=== PATIENT | male | born 1960 | race Caucasian/White ===

== ENCOUNTER 2021-03-28 05:29 | Inpatient (IN) | payer MEDICAID, OTHER ==
[~2021-03-28] VITALS: Ht 177.8 cm; Wt 67.9 kg
[2021-03-28] MEDS ORDERED: HYDROmorphone 2 MG/ML, 1ML ONE (05:57)
[2021-03-28] MEDS ORDERED: ONDANSETRON 2MG/ML, 2ML ONE (05:58)
[2021-03-28] MEDS ORDERED: HYDROmorphone 1 MG/ML, 1ML INJ IV ONE (06:00)
[2021-03-28] MEDS ORDERED: SODIUM CHLORIDE FLUSH 10ML SYR IVF ONE (06:00)
[2021-03-28] MEDS ORDERED: SODIUM CHLORIDE 0.9% 1,000 ML IV ONE ×2 (06:00→07:30)
[2021-03-28] MEDS ORDERED: ONDANSETRON 2MG/ML, 2ML IVPush ONE (06:00)
[2021-03-28 06:26] LABS: BASOPHILS % (AUTO) 0 % (0-1); EOSINOPHILS % (AUTO) 0 % (1-7); LYMPHOCYTES % (AUTO) 4 % (22-44); MEAN CORPUSCULAR HEMOGLOBIN 28.7 pg (27.5-34.5); MEAN CORPUSCULAR HGB CONC 32.9 g/dL (33.2-36.2); MEAN PLATELET VOLUME 9.2 fL (7.4-10.4); MONOCYTES % (AUTO) 7 % (2-9); NEUTROPHILS % (AUTO) 89 % (42-75); PLATELET COUNT 149 x10^3/uL (130-400); RED BLOOD COUNT 5.23 x10^6/uL (4.38-5.82); RED CELL DISTRIBUTION WIDTH 15.9 % (9.4-14.8)
[2021-03-28 06:34] LABS: ALBUMIN 3.7 g/dL (3.4-5.0); ANION GAP 8 mmol/L (5-15); CHLORIDE 102 mmol/L (98-107)
[2021-03-28 06:38] LABS: CREATININE 0.89 mg/dL (0.7-1.3)
[2021-03-28 06:39] LABS: ALANINE AMINOTRANSFERASE 110 U/L (12-78); ALKALINE PHOSPHATASE 395 U/L (45-117); TOTAL PROTEIN 8.3 g/dL (6.4-8.2)
--- NOTE | 2021-03-28 07:01 | NUR ---
CARE TRANSFERED. REPORT GIVEN TO FRANCO OVALLE
[2021-03-28] MEDS ORDERED: SODIUM CHLORIDE FLUSH 10ML SYR IVF PRN (07:30)
--- NOTE | 2021-03-28 07:59 | NUR ---
PT TO MRI WITH TECH TRANSPORT
--- NOTE | 2021-03-28 07:59 | NUR ---
LATE ENTRY FOR 0740, DR MARMOLEJO AT BEDSIDE. POC DISCUSSED AND QUESTIONS ANSWERED.
[2021-03-28] MEDS ORDERED: ONDANSETRON 2MG/ML, 2ML IVPush PRN ×2 (08:00→10:30)
[2021-03-28] MEDS ORDERED: LACTATED RINGERS 1,000 ML IV SCH (08:00)
[2021-03-28] MEDS ORDERED: ACETAMINOPHEN 325 MG TABLET PO PRN ×2 (08:00→10:30)
[2021-03-28] MEDS ORDERED: INSULIN LISPRO 100 UNITS/ML, PEN SQ-INSULIN SCH (08:00)
[2021-03-28] MEDS ORDERED: OXYcodone IR 5MG TABLET PO PRN (08:00)
[2021-03-28] MEDS: CEFTRIAXONE 2 GM in DEXTROSE 5% 50 ML IVPB SCH (08:49)
--- NOTE | 2021-03-28 08:54 | NUR ---
PT RTD FROM MRI. IVF STARTED AND INFUSING PER ORDER, ROCEPHIN INFUSING PER ORDER. COVID PCR SAMPLE COLLECTED AND DELIVERED TO LAB.
[2021-03-28] MEDS ORDERED: PANTOPRAZOLE 40 MG IV IVPush SCH (09:00)
[2021-03-28] MEDS ORDERED: INSULIN LISPRO SINGLE DOSE, ER SQ-INSULIN ONE (09:06)
[2021-03-28] MEDS: LACTATED RINGERS 1,000 ML IV SCH (09:11)
[2021-03-28 09:34] VITALS: BP 165/94
[2021-03-28] MEDS ORDERED: CHLORHEXIDINE 15 ML UDC ONE (09:35)
[2021-03-28] MEDS ORDERED: FENTANYL PF 100 MCG/2ML ONE (09:37)
[2021-03-28] MEDS ORDERED: OMNIPAQUE 350 MG/ML, 50 ML BOTTLE ONE (09:41)
[2021-03-28] MEDS ORDERED: DEXAMETHASONE 4 MG/ML, 5ML ONE (09:55)
[2021-03-28] MEDS ORDERED: CHLORHEXIDINE 15 ML UDC PO ONE (10:00)
[2021-03-28] MEDS ORDERED: PROPOFOL 10 MG/ML, 20ML ONE (10:03)
[2021-03-28] MEDS ORDERED: PROMETHAZINE 25 MG/ML, 1ML IVPush PRN (10:30)
[2021-03-28] MEDS ORDERED: PROMETHAZINE 12.5 MG SUPP PR PRN (10:30)
[2021-03-28] MEDS ORDERED: OXYcodone 5 MG/5 ML ORAL.SOL UDC PO PRN (10:30)
[2021-03-28] MEDS ORDERED: DIAZEPAM 5 MG/ML, 2ML IVPush PRN (10:30)
[2021-03-28] MEDS ORDERED: MIDAZOLAM 1 MG/ML, 2ML IV PRN (10:30)
[2021-03-28] MEDS ORDERED: MEPERIDINE/PF 25MG/0.5ML IVPush PRN (10:30)
[2021-03-28] MEDS ORDERED: HYDROmorphone 1 MG/ML, 1ML INJ IVPush PRN (10:30)
[2021-03-28] MEDS ORDERED: EPHEDRINE 50 MG/ML, 1ML IVPush PRN (10:30)
[2021-03-28] MEDS ORDERED: LORazepam 2 MG/ML, 1ML IVPush PRN (10:30)
[2021-03-28] MEDS ORDERED: DIPHENHYDRAMINE 50 MG/ML, 1ML IVPush PRN ×2 (10:30)
[2021-03-28] MEDS ORDERED: FENTANYL PF 100 MCG/2ML IV PRN (10:30)
[2021-03-28] MEDS ORDERED: hydrALAzine 20 MG/ML, 1ML IV PRN (10:30)
[2021-03-28] MEDS ORDERED: ALBUTEROL SULFATE 2.5 MG/3 ML NPPB PRN (10:30)
[2021-03-28] MEDS ORDERED: LABETALOL 5MG/ML, 20ML IV PRN (10:30)
[2021-03-28] MEDS: METRONIDAZOLE PMX 500MG/100ML 100 ML IV SCH ×2 (11:28→19:52)
[2021-03-28] MEDS: SUCRALFATE 1 GM/10 ML UDC PO SCH ×3 (11:29→20:22)
[2021-03-28] MEDS: INSULIN LISPRO 100 UNITS/ML, PEN SQ-INSULIN SCH ×3 (11:30→20:23)
[2021-03-28] MEDS ORDERED: OMEP-110 PO (12:04)
[2021-03-28] MEDS ORDERED: DILT120C83 PO (12:04)
[2021-03-28] MEDS ORDERED: METF500T27 PO (12:04)
[2021-03-28] MEDS ORDERED: MIRT-14 PO (12:04)
[2021-03-28] MEDS ORDERED: ASPI-1026 PO (12:04)
[2021-03-28] MEDS ORDERED: INSU100V8 SQ (12:04)
[2021-03-28] MEDS ORDERED: GABA300C PO ×2 (12:04)
[2021-03-28] MEDS ORDERED: ATOR20TA37 PO (12:04)
[2021-03-28] MEDS ORDERED: INSU100I11 SQ (12:04)
[2021-03-28] MEDS ORDERED: EPINEPHRINE SYRINGE 0.1 MG/ML, 10ML ONE (12:12)
[2021-03-28 13:52] VITALS: BP 109/75
[2021-03-28 18:21] VITALS: BP 98/66
[2021-03-28] MEDS ORDERED: TRAZODONE 50MG TABLET PO PRN (21:00)
[2021-03-28] MEDS ORDERED: MELATONIN 5 MG TABLET PO PRN (21:00)
[2021-03-29 00:09] VITALS: BP 124/84
[2021-03-29] MEDS: LACTATED RINGERS 1,000 ML IV SCH ×2 (03:25→16:00)
[2021-03-29] MEDS: METRONIDAZOLE PMX 500MG/100ML 100 ML IV SCH ×3 (03:25→18:10)
[2021-03-29 06:41] LABS: BASOPHILS % (AUTO) 0 % (0-1); EOSINOPHILS % (AUTO) 1 % (1-7); LYMPHOCYTES % (AUTO) 11 % (22-44); MEAN CORPUSCULAR HEMOGLOBIN 29.2 pg (27.5-34.5); MEAN CORPUSCULAR HGB CONC 33.3 g/dL (33.2-36.2); MEAN PLATELET VOLUME 9.3 fL (7.4-10.4); MONOCYTES % (AUTO) 7 % (2-9); NEUTROPHILS % (AUTO) 80 % (42-75); PLATELET COUNT 149 x10^3/uL (130-400); RED BLOOD COUNT 4.27 x10^6/uL (4.38-5.82)
[2021-03-29 06:47] LABS: ALBUMIN 2.7 g/dL (3.4-5.0); CALCIUM 8.3 mg/dL (8.5-10.1)
[2021-03-29 06:51] LABS: ALANINE AMINOTRANSFERASE 121 U/L (12-78); ALKALINE PHOSPHATASE 318 U/L (45-117); BILIRUBIN,TOTAL 4.6 mg/dL (0.2-1.0); CREATININE 0.94 mg/dL (0.7-1.3); TOTAL PROTEIN 6.3 g/dL (6.4-8.2)
[2021-03-29 06:54] LABS: ANION GAP 5 mmol/L (5-15); CHLORIDE 106 mmol/L (98-107)
[2021-03-29 07:00] VITALS: BP 122/78
[2021-03-29] MEDS: INSULIN LISPRO 100 UNITS/ML, PEN SQ-INSULIN SCH ×4 (07:00→21:04)
[2021-03-29] MEDS: SUCRALFATE 1 GM/10 ML UDC PO SCH ×4 (07:18→21:04)
[2021-03-29] MEDS: OMEPRAZOLE 20 MG CAPSULE.DR PO SCH (07:18)
[2021-03-29] MEDS ORDERED: CHLORHEXIDINE 15 ML UDC ONE (07:52)
[2021-03-29] MEDS ORDERED: FENTANYL PF 100 MCG/2ML ONE ×4 (08:25→11:13)
[2021-03-29] MEDS ORDERED: MIDAZOLAM 1 MG/ML, 2ML ONE (08:25)
[2021-03-29] MEDS ORDERED: EPINEPHRINE 1 MG/ML, 1ML ONE (08:28)
[2021-03-29] MEDS ORDERED: CHLORHEXIDINE 15 ML UDC PO ONE (08:30)
[2021-03-29] MEDS ORDERED: BUPIVACAINE/PF 0.5% ONE (08:34)
[2021-03-29] MEDS ORDERED: CEFOTETAN 2 GM ONE (08:51)
[2021-03-29] MEDS ORDERED: PHENYLEPHRINE 10 MG/ML ONE (08:51)
[2021-03-29] MEDS ORDERED: BUPIVACAINE/PF 0.5% INFIL ONE (09:03)
[2021-03-29 09:12] LABS: OCCULT BLOOD NEGATIVE (NEGATIVE)
[2021-03-29] MEDS ORDERED: PROMETHAZINE 25 MG/ML, 1ML IVPush PRN (10:00)
[2021-03-29] MEDS ORDERED: LABETALOL 5MG/ML, 20ML IV PRN (10:00)
[2021-03-29] MEDS ORDERED: hydrALAzine 20 MG/ML, 1ML IV PRN (10:00)
[2021-03-29] MEDS ORDERED: OXYcodone 5 MG/5 ML ORAL.SOL UDC PO PRN (10:00)
[2021-03-29] MEDS ORDERED: METHOCARBAMOL 1,000 MG in DEXTROSE 5% 100 ML IV PRN (10:00)
[2021-03-29] MEDS ORDERED: ACETAMINOPHEN 325 MG TABLET PO PRN (10:00)
[2021-03-29] MEDS ORDERED: ONDANSETRON 2MG/ML, 2ML IVPush PRN (10:00)
[2021-03-29] MEDS ORDERED: HYDROmorphone 1 MG/ML, 1ML INJ IVPush PRN (10:00)
[2021-03-29] MEDS ORDERED: PROMETHAZINE 25 MG SUPP PR PRN (10:00)
[2021-03-29] MEDS ORDERED: MEPERIDINE/PF 25MG/0.5ML IVPush PRN (10:00)
[2021-03-29] MEDS ORDERED: LORazepam 2 MG/ML, 1ML IVPush PRN (10:00)
[2021-03-29] MEDS ORDERED: METOPROLOL 1 MG/ML, 5ML IV PRN (10:00)
[2021-03-29] MEDS ORDERED: ROCURONIUM 10MG/ML,5ML ONE (10:04)
[2021-03-29] MEDS ORDERED: PROPOFOL 10 MG/ML, 20ML ONE (10:04)
[2021-03-29] MEDS ORDERED: CEFAZOLIN 1,000 MG ONE (10:04)
[2021-03-29] MEDS ORDERED: NEOSTIGMINE 1 MG/ML, 10ML ONE (10:04)
[2021-03-29] MEDS ORDERED: SUCCINYLCHOLINE 20 MG/ML, 10ML ONE (10:04)
[2021-03-29] MEDS ORDERED: ONDANSETRON 2MG/ML, 2ML ONE (10:04)
[2021-03-29] MEDS ORDERED: GLYCOPYRROLATE 0.2MG/1ML, 5ML ONE (10:04)
[2021-03-29] MEDS ORDERED: DEXAMETHASONE 4 MG/ML, 1ML ONE (10:04)
[2021-03-29] MEDS ORDERED: TRANEXAMIC ACID 100 MG/ML, 10ML ONE (10:11)
[2021-03-29] MEDS ORDERED: SUGAMMADEX 200 MG/2 ML IVPush ONE (10:21)
[2021-03-29] MEDS: FENTANYL PF 100 MCG/2ML IV PRN ×4 (10:48→11:28)
[2021-03-29] MEDS ORDERED: OXYcodone 5 MG/5 ML ORAL.SOL UDC ONE (11:20)
[2021-03-29] MEDS ORDERED: HYDROmorphone 2 MG/ML, 1ML ONE (11:44)
[2021-03-29 12:05] VITALS: BP 140/85
[2021-03-29] MEDS: CEFTRIAXONE 2 GM in DEXTROSE 5% 50 ML IVPB SCH (14:37)
[2021-03-29] MEDS: morphine SULFATE 10 MG/ML, 1ML IV PRN ×2 (15:59→17:07)
[2021-03-29] MEDS ORDERED: MORPHINE SULFATE 4 MG/ML, 1ML IV PRN (16:00)
[2021-03-29] MEDS ORDERED: ONDANSETRON 4 MG TABLET PO PRN (16:00)
[2021-03-29 19:03] VITALS: BP 122/77
[2021-03-29] MEDS: OXYcodone/APAP 5/325MG TABLET PO PRN ×2 (19:22→23:56)
[2021-03-29] MEDS: CEFOTETAN PMX 1GM/50ML 50 ML IVPB SCH (21:05)
[2021-03-30] MEDS: METRONIDAZOLE PMX 500MG/100ML 100 ML IV SCH ×2 (02:05→10:14)
[2021-03-30 02:11] VITALS: BP 98/61
[2021-03-30 05:08] LABS: BASOPHILS % (AUTO) 1 % (0-1); EOSINOPHILS % (AUTO) 2 % (1-7); LYMPHOCYTES % (AUTO) 10 % (22-44); MEAN CORPUSCULAR HEMOGLOBIN 29.5 pg (27.5-34.5); MEAN CORPUSCULAR HGB CONC 33.3 g/dL (33.2-36.2); MEAN PLATELET VOLUME 9.5 fL (7.4-10.4); MONOCYTES % (AUTO) 7 % (2-9); NEUTROPHILS % (AUTO) 80 % (42-75); PLATELET COUNT 119 x10^3/uL (130-400); RED BLOOD COUNT 3.85 x10^6/uL (4.38-5.82); RED CELL DISTRIBUTION WIDTH 16.4 % (9.4-14.8)
[2021-03-30 05:17] LABS: CHLORIDE 104 mmol/L (98-107)
[2021-03-30 05:25] LABS: ALANINE AMINOTRANSFERASE 120 U/L (12-78); ALBUMIN 2.2 g/dL (3.4-5.0); ALKALINE PHOSPHATASE 263 U/L (45-117); ANION GAP 4 mmol/L (5-15); BILIRUBIN,TOTAL 3.8 mg/dL (0.2-1.0); CALCIUM 8.3 mg/dL (8.5-10.1); CREATININE 0.91 mg/dL (0.7-1.3); TOTAL PROTEIN 5.9 g/dL (6.4-8.2)
[2021-03-30] MEDS: OXYcodone/APAP 5/325MG TABLET PO PRN ×4 (05:52→21:01)
[2021-03-30] MEDS: SUCRALFATE 1 GM/10 ML UDC PO SCH ×4 (07:47→21:02)
[2021-03-30] MEDS: LACTATED RINGERS 1,000 ML IV SCH (07:47)
[2021-03-30] MEDS: INSULIN LISPRO 100 UNITS/ML, PEN SQ-INSULIN SCH ×4 (07:48→21:19)
[2021-03-30] MEDS: OMEPRAZOLE 20 MG CAPSULE.DR PO SCH (07:48)
[2021-03-30] MEDS ORDERED: CEFTRIAXONE 2 GM in DEXTROSE 5% 50 ML IVPB SCH (08:00)
[2021-03-30] MEDS: CEFOTETAN PMX 1GM/50ML 50 ML IVPB SCH ×2 (09:17→21:02)
[2021-03-30 13:56] VITALS: BP 110/70
[2021-03-30] MEDS ORDERED: POLYETHYLENE GLYCOL 17 GM PACKET NG PRN (15:00)
[2021-03-30 20:02] VITALS: BP 124/75
[2021-03-30] MEDS: ATORVASTATIN 20 MG TABLET PO SCH (21:01)
[2021-03-30] MEDS: MIRTAZAPINE 15 MG TABLET PO SCH (21:02)
[2021-03-30] MEDS: INSULIN GLARGINE 100 UNITS/ML, PEN SQ-INSULIN SCH (21:18)
[2021-03-31 00:28] VITALS: BP 114/70
[2021-03-31] MEDS: OXYcodone/APAP 5/325MG TABLET PO PRN ×4 (03:11→20:13)
[2021-03-31 05:14] LABS: BASOPHILS % (AUTO) 1 % (0-1); EOSINOPHILS % (AUTO) 4 % (1-7); LYMPHOCYTES % (AUTO) 11 % (22-44); MEAN CORPUSCULAR HEMOGLOBIN 29.9 pg (27.5-34.5); MEAN CORPUSCULAR HGB CONC 33.7 g/dL (33.2-36.2); MEAN PLATELET VOLUME 9.4 fL (7.4-10.4); MONOCYTES % (AUTO) 9 % (2-9); NEUTROPHILS % (AUTO) 76 % (42-75); PLATELET COUNT 143 x10^3/uL (130-400); RED BLOOD COUNT 3.76 x10^6/uL (4.38-5.82)
[2021-03-31 05:24] LABS: CHLORIDE 102 mmol/L (98-107)
[2021-03-31 05:29] LABS: ALANINE AMINOTRANSFERASE 73 U/L (12-78); ALBUMIN 2.1 g/dL (3.4-5.0); ALKALINE PHOSPHATASE 238 U/L (45-117); ANION GAP 4 mmol/L (5-15); BILIRUBIN,TOTAL 2.1 mg/dL (0.2-1.0); CALCIUM 8.6 mg/dL (8.5-10.1); CREATININE 0.93 mg/dL (0.7-1.3); TOTAL PROTEIN 5.9 g/dL (6.4-8.2)
[2021-03-31 06:59] VITALS: BP 120/72
[2021-03-31] MEDS: INSULIN LISPRO 100 UNITS/ML, PEN SQ-INSULIN SCH ×4 (07:18→20:27)
[2021-03-31] MEDS: SUCRALFATE 1 GM/10 ML UDC PO SCH (07:19)
[2021-03-31] MEDS: OMEPRAZOLE 20 MG CAPSULE.DR PO SCH (07:21)
[2021-03-31] MEDS: CEFOTETAN PMX 1GM/50ML 50 ML IVPB SCH (09:06)
[2021-03-31] MEDS: SENNA/DOCUSATE TABLET PO SCH (09:06)
[2021-03-31] MEDS: DILTIAZEM 120 MG CAP.ER.24H PO SCH (09:07)
[2021-03-31] MEDS ORDERED: OMEP-110 PO (12:08)
[2021-03-31] MEDS ORDERED: SENN-211 PO (12:08)
[2021-03-31] MEDS ORDERED: MIRT-14 PO (12:08)
[2021-03-31] MEDS ORDERED: INSU100V8 SQ (12:08)
[2021-03-31] MEDS ORDERED: OXYC1TAB14 PO (12:08)
[2021-03-31 12:40] VITALS: BP 119/78
[2021-03-31 19:03] VITALS: BP 114/71
[2021-03-31] MEDS: ATORVASTATIN 20 MG TABLET PO SCH (20:13)
[2021-03-31] MEDS: MIRTAZAPINE 15 MG TABLET PO SCH (20:13)
[2021-03-31] MEDS: INSULIN GLARGINE 100 UNITS/ML, PEN SQ-INSULIN SCH (20:26)
[2021-04-01 01:49] VITALS: BP 120/78
[2021-04-01] MEDS: INSULIN LISPRO 100 UNITS/ML, PEN SQ-INSULIN SCH ×3 (07:00→16:00)
[2021-04-01] MEDS: SENNA/DOCUSATE TABLET PO SCH (07:49)
[2021-04-01] MEDS: OMEPRAZOLE 20 MG CAPSULE.DR PO SCH (07:49)
[2021-04-01] MEDS: DILTIAZEM 120 MG CAP.ER.24H PO SCH (07:49)
[2021-04-01] MEDS: OXYcodone/APAP 5/325MG TABLET PO PRN (08:10)
[2021-04-01] MEDS ORDERED: OMEPRAZOLE 20 MG CAPSULE.DR PO SCH (21:00)
== END 2021-04-01 16:45 | disposition home or self-care (01) | DRG 263 ==
LOC: ED 06:01 → EDIP 07:30 → 3N 09:30
PROVIDERS: ADMIT Internal Medicine; ATTEND Family Medicine
PROC: 0W3P8ZZ Control Bleeding in Gastrointestinal Tract, Via Natural or Artificial Opening Endoscopic (ICD-10-PCS; 2021-03-28)
PROC: 0DB58ZX Excision of Esophagus, Via Natural or Artificial Opening Endoscopic, Diagnostic (ICD-10-PCS; 2021-03-28)
PROC: 0DB68ZX Excision of Stomach, Via Natural or Artificial Opening Endoscopic, Diagnostic (ICD-10-PCS; 2021-03-28)
PROC: BF101ZZ Fluoroscopy of Bile Ducts using Low Osmolar Contrast (ICD-10-PCS; 2021-03-28)
PROC: 0FC78ZZ Extirpation of Matter from Common Hepatic Duct, Via Natural or Artificial Opening Endoscopic (ICD-10-PCS; principal; 2021-03-28 09:30)
PROC: 0FT40ZZ Resection of Gallbladder, Open Approach (ICD-10-PCS; 2021-03-29)
PROC: 0FJ44ZZ Inspection of Gallbladder, Percutaneous Endoscopic Approach (ICD-10-PCS; 2021-03-29)
DX: K80.43 Calculus of bile duct with acute cholecystitis with obstruction (principal); E43 Unspecified severe protein-calorie malnutrition; K22.6 Gastro-esophageal laceration-hemorrhage syndrome; C48.1 Malignant neoplasm of specified parts of peritoneum; D68.69 Other thrombophilia; K70.10 Alcoholic hepatitis without ascites; Z68.22 Body mass index [BMI] 22.0-22.9, adult; F32.9 Major depressive disorder, single episode, unspecified; I48.0 Paroxysmal atrial fibrillation; K82.8 Other specified diseases of gallbladder; R31.9 Hematuria, unspecified; K22.70 Barrett's esophagus without dysplasia; K66.0 Peritoneal adhesions (postprocedural) (postinfection); K44.9 Diaphragmatic hernia without obstruction or gangrene; Z20.822 Contact with and (suspected) exposure to COVID-19; Z66 Do not resuscitate; E11.9 Type 2 diabetes mellitus without complications; E78.5 Hyperlipidemia, unspecified; F10.10 Alcohol abuse, uncomplicated; I10 Essential (primary) hypertension; J44.9 Chronic obstructive pulmonary disease, unspecified; Z51.5 Encounter for palliative care; Z53.31 Laparoscopic surgical procedure converted to open procedure; Z79.4 Long term (current) use of insulin; Z82.49 Family history of ischemic heart disease and other diseases of the circulatory system; Z83.3 Family history of diabetes mellitus; Z87.891 Personal history of nicotine dependence
CPT/HCPCS: 36415; 71045; 74181; 74328; 80053; 82272; 82962; 83605; 83690; 83735; 84100; 85025; 86850; 86870; 86900; 86922; 86923; 87635; 88304; 88305; 93005; 96374; 96375; G0378; J0171; J0690; J0696; J1100; J1170; J2250; J2405; J2704; J2710; J3010; Q9967; C1760; C1769; J0330; J1815; J2270; J2370; J2800; J7030; J7120